=== PATIENT | female | born 1955 | race Caucasian/White ===

== ENCOUNTER → 2017-03-06 | Outpatient (CLI) | payer BC ==
[~2017-03-06] MED LIST: ACCUPRIL10 M1 PO; ASPIRIN 81M81 MG/TA2 PO; CYTOMEL 2525 MCG/TAB PO; EFFEXOR 75M75 MG/TAB PO; EFFEXOR-XR150 MG PO; GLUCOSAMINE & C1 CA2 PO; MULTI VITAMINS1 TAB PO; PRIL40 PO; VITAMIN D31000 I1 PO; WELLBUTRIN 100100 MG PO; ZOCOR 40MG40 MG PO
== END ==
LOC: COL.PUL 11:04
DX: R06.02 Shortness of breath (principal); Z87.891 Personal history of nicotine dependence

== ENCOUNTER → 2017-03-21 | Outpatient (CLI) | payer BC ==
[~2017-03-21] VITALS: Ht 165.1 cm; Wt 72.9 kg
[2017-03-21 08:02] VITALS: BP 153/77; PULSE 90
--- NOTE | 2017-03-21 08:19 | NUR ---
24 g int placed into left ac with 2nd attempt. pt distracted.
== END ==
LOC: COL.CARD 03-20 10:30
DX: C18.2 Malignant neoplasm of ascending colon (principal); I10 Essential (primary) hypertension; E78.2 Mixed hyperlipidemia; I63.9 Cerebral infarction, unspecified; R06.02 Shortness of breath
CPT/HCPCS: A9502

== ENCOUNTER 2018-02-03 08:03 | Outpatient (RCR) | payer BC | END 2018-05-04 | disposition home or self-care (01) | LOC: MKS.ESL.PT | DX: G62.9 Polyneuropathy, unspecified (principal) ==

== ENCOUNTER 2018-03-13 11:00 | Outpatient (RCR) | payer BC | END 2018-05-04 | disposition home or self-care (01) | LOC: MKS.ESL.PT | DX: G62.9 Polyneuropathy, unspecified (principal) ==

== ENCOUNTER → 2019-09-21 | Outpatient (CLI) | payer MEDICARE, BC | LOC: COL.PUL 07:34 | DX: R05 Cough (principal); R06.02 Shortness of breath ==